=== PATIENT | female | born 2000 | race Caucasian/White ===

== ENCOUNTER 2024-11-06 11:54 | Outpatient (CLI) | payer OTHER, SELFPAY ==
--- NOTE | ~2024-11-06 | XR_ITS ---
EXAMINATION: XR chest 2V 11/06/2024 12:07 INDICATION: Ex cigarette smoker PROCEDURE: 2 view chest COMPARISON: 05/13/2019 FINDINGS: The lungs are clear. The cardiomediastinal silhouette is within normal limits. There are no pleural effusions. There is no pneumothorax suspected. IMPRESSION: 1: NO ACUTE CARDIOPULMONARY DISEASE. Reviewed, dictated and finalized at location B. [employer]
== END 2024-11-06 11:55 | disposition home or self-care (01) ==
LOC: GOSHIMG 11:58
PROVIDERS: PCP Family Medicine; Visit Provider Family Medicine
DX: Z87.891 Personal history of nicotine dependence (principal)
CPT/HCPCS: 71046